=== PATIENT | male | born 1970 | race Two or more races ===

== ENCOUNTER 2018-01-25 22:18 | Emergency (ER) | payer OTHER ==
[~2018-01-25] VITALS: Ht 180.3 cm; Wt 94.3 kg
[2018-01-25] MEDS ORDERED: ORPHENADRINE C100 MG PO (23:06)
[2018-01-25] MEDS ORDERED: CYCLOBENZAPRINE10 MG PO (23:06)
[2018-01-25] MEDS ORDERED: KETO10TA2 PO (23:06)
== END 2018-01-25 23:48 | disposition home or self-care (01) ==
LOC: ER 22:18
DX: M54.5 Low back pain (principal)

== ENCOUNTER 2018-09-10 19:30 | Emergency (ER) | payer OTHER ==
[~2018-09-10] VITALS: Ht 182.9 cm; Wt 85.3 kg
[~2018-09-10 19:30] MED LIST: CYCLOBENZAPRINE10 MG PO; KETO10TA2 PO; ORPHENADRINE C100 MG PO
== END 2018-09-10 21:39 | disposition home or self-care (01) ==
LOC: ER 19:30
DX: M79.18 Myalgia, other site (principal)

== ENCOUNTER 2019-05-27 14:07 | Emergency (ER) | payer OTHER ==
[~2019-05-27] VITALS: Ht 180.3 cm; Wt 93.0 kg
== END 2019-05-27 18:49 | disposition home or self-care (01) ==
LOC: ER 14:07
DX: B34.9 Viral infection, unspecified (principal)

== ENCOUNTER 2023-01-18 09:52 | Outpatient (CLI) | payer OTHER | END 2023-01-18 09:58 | disposition home or self-care (01) | LOC: RAD 09:52 | PROVIDERS: ATTEND Specialist | DX: J45.991 Cough variant asthma (principal) ==